=== PATIENT | male | born 1965 | race Caucasian/White ===

== ENCOUNTER 2016-08-05 17:33 | Emergency (ER) | payer BC ==
[2016-08-05 18:39] LABS: HEMOGLOBIN 14.5 gm/dl (14.0-17.5); RED BLOOD COUNT 4.81 M/UL (4.20-5.50); WHITE BLOOD COUNT 11.8 K/UL (4.5-11.0)
[2016-08-05 19:00] LABS: BUN/CREATININE RATIO 16 (0-10)
== END 2016-08-05 22:20 | disposition home or self-care (01) ==
LOC: ER1 17:33
PROVIDERS: Family Medicine
DX: N13.2 Hydronephrosis with renal and ureteral calculous obstruction (principal); M54.9 Dorsalgia, unspecified; G89.29 Other chronic pain; F17.200 Nicotine dependence, unspecified, uncomplicated; Z79.891 Long term (current) use of opiate analgesic
CPT/HCPCS: 36415; 80053; 81001; 82150; 83605; 83690; 85025; 96374; 96375; 99284; J1885; J2270; J2405; J7030; J7050; Q9962